=== PATIENT | male | born 2000 | race Two or more races ===

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

== ENCOUNTER 2025-03-23 07:01 | Emergency (ER) | payer OTHER ==
[~2025-03-23] VITALS: Ht 182.9 cm; Wt 99.3 kg
[~2025-03-23 07:01] MED LIST changes: +ALLEGRA-D 12 H1 EACH PO; +AZITHROMYCIN250 MG PO
[2025-03-23] MEDS ORDERED: METHYLPREDNISOLONE SOD SUCC 40 MG VIAL IV STA (08:41)
[2025-03-23] MEDS ORDERED: GUAIFENESIN/DEXTROMETHORPHAN 100MG/10ML BLIST.PACK PO STA (08:42)
[2025-03-23] MEDS ORDERED: SINGULAIR10 MG PO (08:49)
[2025-03-23] MEDS ORDERED: ZYRTEC10 MG PO (08:49)
[2025-03-23] MEDS ORDERED: BENZONATATE200 M1 PO (08:49)
[2025-03-23] MEDS ORDERED: DEXAMETHASONE2 MG PO (08:49)
[2025-03-23] MEDS ORDERED: MUCINEX DM ER1 EACH PO (08:49)
[2025-03-23] MEDS ORDERED: METHYLPREDNISOLONE SOD SUCC 40 MG VIAL ONE (08:56)
[2025-03-23] MEDS ORDERED: GUAIFENESIN 200 MG/10 ML BLIST.PACK PO ONE (08:56)
== END 2025-03-23 09:24 | disposition home or self-care (01) ==
LOC: ER 07:02
DX: J98.8 Other specified respiratory disorders (principal); R07.89 Other chest pain; F17.200 Nicotine dependence, unspecified, uncomplicated